=== PATIENT | female | born 1975 | race Caucasian/White ===

== ENCOUNTER 2025-01-20 10:55 | Emergency (ER) | payer BC, OTHER ==
[~2025-01-20] VITALS: Ht 170.2 cm; Wt 126.5 kg
--- NOTE | 2025-01-20 12:10 | ED.PDOC ---
Back pain HPI HPI Comments This is a 49-year-old female who comes in with low back pain for approximately two weeks. She states it has been really bad where the point where she has needed help getting dressed. Pain is in her low back and it radiates down to both legs. She has never had physical therapy she has had sciatica before. She has been taking 200 mg of Motrin [id number] without any improvement. Denies any injuries.. Denies any loss of feeling or incontinence. Chief Complaint: Back Pain Time Seen by MD: 12:06 Reviewed Notes: Nurses Notes, Medications, Allergies Allergies: Coded Allergies: NO KNOWN ALLERGIES (Unverified , 01/20/25) Information Source: Patient Mode of Arrival: Ambulatory Past Medical History Past Medical History (Other): Morbid obesity Hypothyroid Surgical History: Denies all surgeries Social History Smoker: Non-Smoker Alcohol: Denies ETOH Use Drugs: Denies Drug Use Lives In: Home Musculoskeletal: reports: back pain, others (Lumbar pain radiates to both legs) All Other Systems: Reviewed and Negative Physical Exam General Appearance: Obese HEENT: Normal ENT Inspection, PERRL/EOMI, Pharynx Normal, TMs Normal Neck: Full Range of Motion, Non-Tender, Normal Inspection Respiratory: Lungs Clear, No Respiratory Distress, Normal Breath Sounds Cardiovascular: Regular Rate/Rhythm Breast Exam: Deferred Gastrointestinal: Non Tender, Soft Genitalia: Deferred Pelvic: Deferred Rectal: Deferred Extremities: Normal inspection, Non-tender Neurologic: Alert, No Motor Deficits, Normal Mood Cerebellar Function: Normal Reflexes: NOT DONE Skin: Dry, Warm Lymphatic: No Adenopathy Was a procedure done? Was a procedure done?: No Back Pain Differential Dx Differential Diagnosis: Musculoskeletal Pain X-Ray, Labs, Meds, VS Vital Signs Date Time Temp Pulse Resp B/P (MAP) Pulse Ox O2 Delivery O2 Flow Rate FiO2 01/20/25 12:17 87 18 97 Room Air 01/20/25 12:17 98.1 87 18 123/76 (92) 97 98.1 01/20/25 10:56 98.8 87 20 155/94 95 98.8 Current Medications Medications (Trade) Dose Ordered Sig/Janny Route Start Time Stop Time Status Last Admin Ketorolac Tromethamine (Toradol Injection) 60 mg ONCE ONCE IM 01/20/25 12:15 01/20/25 12:16 DC 01/20/25 12:22 Acetaminophen/ Hydrocodone Bitart (Tamiment 10/325MG Tab) 1 tab ONCE ONCE PO 01/20/25 12:15 01/20/25 12:16 DC 01/20/25 12:18 X-Ray, Labs, Meds, VS Comment Patient seen and examined by me. Patient does have lumbar pain also with sciatica. Has been struggling for the last two weeks. She has morbid obese as well I will give her a Toradol shot of 60 mg I will also send her home on correct dosing of Motrin to start tomorrow. I have instructed the patient to continue with heat and ice and stretch also to follow up with her primary care doctor for referral to physical therapy which will help in the long run.. Time of 1ST Reevaluation: 13:12 Reevaluation 1ST: Improved Patient Education/Counseling: Diagnosis, Treatment, Prognosis, Need For Follow Up Family Education/Counseling: Diagnosis, Treatment, Prognosis, Need For Follow Up SEPSIS Sepsis Screen Date sepsis recognized/suspect: Jan 20, 2025 Time Sepsis recognized/suspect: 1056 Recent Procedure: No On Antibiotic Therapy: No Respiratory Rate >20: No Heart Rate >90: No Temp<36 C (96.8 F) or >38.3 C: No SBP <90 or MAP <65 mmHG: No New Acute Mental Status Change: No Is the patient on CPAP, BIPAP,: No Vital Signs Date Time Temp Pulse Resp B/P (MAP) Pulse Ox O2 Delivery O2 Flow Rate FiO2 01/20/25 12:17 87 18 97 Room Air 01/20/25 12:17 98.1 87 18 123/76 (92) 97 98.1 01/20/25 10:56 98.8 87 20 155/94 95 98.8 Medications Medications Dose Ordered Sig/Janny Route Start Time Stop Time Status Last Admin Dose Admin Acetaminophen/ Hydrocodone Bitart 1 tab ONCE ONCE PO 01/20/25 12:15 01/20/25 12:16 DC 01/20/25 12:18 Ketorolac Tromethamine 60 mg ONCE ONCE IM 01/20/25 12:15 01/20/25 12:16 DC 01/20/25 12:22 Departure 1 Departure Time of Disposition: 13:12 Impression: Primary Impression: Lumbar radiculopathy Additional Impression: Lumbar sprain Disposition: 01 HOME / SELF CARE / HOMELESS Condition: Good Additional Instructions: Alternate heat and ice to your lower back Start the Motrin tomorrow as You have had a strong dose of medicine here follow up with your regular doctor for referral to physical therapy e-Prescriptions Ibuprofen Micronized (Ibuprofen) 600 Mg Tab 600 MG PO Q6HPRN PRN for 5 Days, #20 TAB Prov: LXU VARGAS 01/20/25 Discharged With: Self Critical Care Note Critical Care Time?: No Stability Stability form required: No LUX VARGAS Jan 20, 2025 12:10
[2025-01-20 12:17] VITALS: BP 123/76; PULSE 87; RESP 18; TEMP 98.1; O2SAT 97
[2025-01-20] MEDS: HYDROcodone-ACET 10/325MG TAB PO ONE (12:18)
[2025-01-20] MEDS: KETOROLAC TROMETH 60MG/2ML VIAL IM ONE (12:22)
[2025-01-20] MEDS ORDERED: IBUP1TAB5 PO (13:13)
== END 2025-01-20 13:24 | disposition home or self-care (01) ==
LOC: ER 10:55
DX: S33.5XXA Sprain of ligaments of lumbar spine, initial encounter (principal); M54.16 Radiculopathy, lumbar region; E66.01 Morbid (severe) obesity due to excess calories; Z68.41 Body mass index [BMI] 40.0-44.9, adult; X58.XXXA Exposure to other specified factors, initial encounter; Y93.89 Activity, other specified; Y92.89 Other specified places as the place of occurrence of the external cause; Y99.8 Other external cause status
CPT/HCPCS: 96372; 99283; J1885